=== PATIENT | female | born 1940 | race Caucasian/White ===

== ENCOUNTER 2017-08-05 12:34 | Inpatient (IN) ==
--- NOTE | 2017-08-05 15:56 | Internal Med History&Physical ---
Date of Encounter: 08/05/17 Time of Encounter: 15:50 Assessment and Plan (1) Fracture of unspecified part of neck of right femur, initial encounter for closed fracture Current visit: Yes Status: Acute Orthopedic Surgery has been consulted. Recommendations are appreciated. Tylenol prn, Toradol prn breakthrough. Labs today were wnl. Will order CBC, BMP for tomorrow AM. Regular diet NPO at midnight. Lovenox for DVT prophylaxis (2) Elevated BP without diagnosis of hypertension Current visit: Yes Status: Acute Likely secondary to pain. Will monitor. Internal Medicine - H&P: HPI Chief complaint: Femur fractire Admitted From: Home Plans for Post Hospital Care: [facility] History of present illness: Ms. Villeda is a 77 year old female with no significant past medical history presented to [facility] after right hip pain. Patient slipped on ice and was not able to put weight on it. Pain was sharp, 8/10 in severity and worse with any weight-bearing. She denies numbness, tingling, or muscle weakness. Patient had CT scan of right hip which showed a commuted impacted slightly displaced femoral neck fracture. She did not have any head trauma. No other injuries. Workup at [facility] included: CBC, BMP, PT/ INR, UA, XR chest, EKG, all of which were unremarkable. BP ranged from 144-169/ 76-85, HR 70-77. All Systems PM: A 10-system review of systems was performed and is negative for pertinent findings except as documented above in the HPI. - Constitutional Constitutional: falls, no anorexia, no chills, no fatigue, no fever(s), no night sweats - EENT Eyes: no blurry vision, no change in vision Ears: no ear pain, no tinnitus Nose, mouth and throat: no epistaxis, no facial pain - Cardiovascular Cardiovascular ROS IM: no chest pain, no claudication, no diaphoresis - Respiratory Respiratory: no cough, no dyspnea, no wheezing, no excessive phlegm production - Gastrointestinal Gastrointestinal: no abdominal pain, no diarrhea, no hematemesis, no hematochezia, no melena, no nausea, no vomiting - Genitourinary Genitourinary: no change in urinary stream, no dysuria, no flank pain, no hematuria - Musculoskeletal Musculoskeletal ROS IM: no numbness, no tingling Additional comments: Right hip pain - Neurological Neurological ROS: no confusion, no convulsions, no focal weakness, no numbness, no tingling, no tremor(s) - Hematologic/Lymphatic Hematologic/Lymphatic: no easy bruising - Constitutional Vitals: Temp Pulse Resp BP Pulse Ox 98.2 F 74 18 132/77 94 08/05/17 14:53 08/05/17 14:53 08/05/17 14:53 08/05/17 14:53 08/05/17 14:53 - Head Head exam: Present: atraumatic, normocephalic - Eye Eye exam: Present: PERRL, conjuntiva pink, sclera anicteric Pupils: Present: PERRL - Neck Neck exam general surgery: Present: supple, trachea midline. Absent: lymphadenopathy - Respiratory Respiratory exam: Present: CTAB. Absent: accessory muscle use, rales, rhonchi, wheezes - Cardiovascular Cardiovascular exam: Present: RRR, +S1, +S2. Absent: diastolic murmur, gallop, rubs, systolic murmur - GI/Abdominal GI/Abdominal exam: Present: normal bowel sounds, soft, no peritoneal signs. Absent: distended, tenderness - Extremities Exam Extremities exam: Present: warm, radial pulses palpable and symmetrical. Absent : calf tenderness, cyanotic, pedal edema Additional comments: Right hip with lateral tenderness, no bruising, no hematomy, no gross deformity. - Neurological Exam Neurological exam: Present: CN II-XII intact, oriented X3, no focal deficits. Absent: pronater drift, facial droop, speech deficit - Skin Skin exam: Present: dry, intact Internal Med - H&P Results - Labs Labs: See HPI; CBC, BMP, UA, EKG are unremarkable.
[2017-08-05] MEDS ORDERED: Acetaminophen 325 MG TABLET PO PRN (16:28)
[2017-08-05] MEDS ORDERED: Naloxone 0.4 MG/ML INJ IVP PRN (16:28)
[2017-08-05] MEDS ORDERED: Ondansetron 4 MG/2 ML VIAL IVP PRN (16:28)
[2017-08-05] MEDS: 0.9 % Sodium Chloride 1,000 ML IVC SCH (17:00)
[2017-08-05] MEDS: Ketorolac 30 MG/ML VIAL IVP PRN (17:01)
[2017-08-06 04:40] LABS: Basophils % 0.4 %; Eosinophils # 0.1 K/mcL (0.0-0.6); Hematocrit 39.8 % (35.3-44.9); Hemoglobin 13.1 g/dL (11.5-15.4); Immature Granulocytes % 0.1 % (0-4); Lymphocytes # 2.2 K/mcL (0.6-4.6); Lymphocytes % 26.9 %; Mean Corpuscular HGB Conc 32.9 g/dL (31.6-35.5); Mean Corpuscular Hemoglobin 30.3 pg (28.0-33.3); Mean Corpuscular Volume 92.1 fL (83.0-100.0); Mean Platelet Volume 8.9 fL (9.4-12.4); Monocytes # 0.7 K/mcL (0.0-1.3); Monocytes % 8.9 %; Neutrophils # 5.1 K/mcL (1.6-8.9); Platelet Count 185 K/mcL (140-400); Red Blood Count 4.32 M/mcL (3.82-4.97); Red Cell Distribution Width 13.2 % (11.5-14.5); Segmented Neutrophils % 62.7 %
[2017-08-06 04:51] LABS: BUN/Creatinine Ratio 30 (6-26); Blood Urea Nitrogen 22 mg/dL (7-20); Calcium 8.4 mg/dL (8.6-10.8); Carbon Dioxide 25 mEq/L (19-29); Chloride 111 mEq/L (98-109); Glucose 94 mg/dL (70-99); Osmolality,Calculated 297 (280-300); Potassium 3.9 mEq/L (3.5-4.5); Sodium 142 mEq/L (136-145); eGFR For African Americans > 60 (> 60); eGFR For Non-African Americans > 60 (> 60)
[2017-08-06] MEDS ORDERED: *HR* Enoxaparin 40 MG/0.4 ML SYRINGE SQ SCH (06:00)
[2017-08-06] MEDS: *HR* Heparin 5,000 UNIT/ML VIAL SQ SCH ×2 (07:04→16:27)
[2017-08-06] MEDS: Ketorolac 30 MG/ML VIAL IVP PRN ×2 (07:44→14:19)
--- NOTE | 2017-08-06 08:36 | Orthopedic Consult Note ---
Date of Encounter: 08/06/17 Time of Encounter: 08:33 Assessment and Plan (1) Fracture of unspecified part of neck of right femur, initial encounter for closed fracture Current Visit: Yes Status: Acute I did discuss the diagnosis in detail the patient. She has a right proximal femur fracture as described above. Treatment options were discussed and my recommendations for internal fixation in order to stabilize the hip to reduce the risk of displacement as well as to control pain and help facilitate nursing care. The risks discussed included but were not limited to stiffness, bleeding , infection, blood clots, damage to neurovascular structures, tendons, ligaments , and bone. Also discussed was the risk of continued symptoms and possible need for further procedures. I did discuss the anesthesia risks including stroke, heart attack, and . I did discuss the reasonable, foreseeable postoperative course with the patient. She did wish to proceed and consent was obtained. We will plan on surgery this afternoon. History of Present Illness HPI: Ms. Villeda is a 77 year old female admitted to the hospitalist as a transfer from [place]. She is having right hip pain after a fall at [employer] and was demonstrated to have a right proximal femur fracture. After the transfer orthopedics consulted to evaluate the patient. On my evaluation she complains of isolated pain about the right hip and groin region. She denies any headaches , neck pain, chest pain, abdominal pain, bilateral upper extremity pain, and left lower extremity pain. Pain is worse with movement and better with rest. No numbness, tingling, or any other associated signs or symptoms or modifying factors. At baseline she is an unassisted community ambulator. Past Med Surg Social Fam HX - Past Medical History Psychiatric history: no psych history - Social History Smoking Status: Never smoker Alcohol use: occasionally Drug use: none - Family History Father Hx Family Cardiac Disorders: Yes (CHF) Medications and Allergies Multivitamin,Therapeutic [Thera-Tabs] 1 each PO DAILY 08/05/17 [History] 3 Allergy/AdvReac Type Severity Reaction Status Date / Time No Known Allergies Allergy Verified 08/05/17 16:52 All Systems Reviewed: A 10-system review of systems was performed and is negative for pertinent findings except as documented above in the HPI. Physical Exam - Constitutional Vitals: Temp Pulse Resp BP Pulse Ox 98 F 76 18 137/68 96 08/06/17 06:32 08/06/17 06:32 08/06/17 06:32 08/06/17 06:32 08/06/17 06:32 Constitutional -Vitals reviewed -The patient is well developed and well nourished. -Mood is pleasant. -The patient is well groomed. Psychiatric -The patient is fully alert and oriented x 3. Respiratory: -Respiratory effort normal Abdomen: -Soft abdomen -Non tender -Non distended: Left upper extremity: -No deformities. The overlying skin is intact. No obvious signs of acute trauma. -No tenderness to palpation throughout. -No significant pain with passive motion of the shoulder, elbow, wrist, and fingers within the limits of the bed. -Able to make an "OK" sign, cross the index and long fingers, and extend the thumb. -Sensation grossly intact to light touch throughout the median, radial, and ulnar distributions. -Radial pulse is present; Fingers have good capillary refill. Right upper extremity: -No deformities. The overlying skin is intact. No obvious signs of acute trauma. -No tenderness to palpation throughout. -No significant pain with passive motion of the shoulder, elbow, wrist, and fingers within the limits of the bed. -Able to make an "OK" sign, cross the index and long fingers, and extend the thumb. -Sensation grossly intact to light touch throughout the median, radial, and ulnar distributions. -Radial pulse is present; Fingers have good capillary refill. Left lower extremity: -No deformities. The overlying skin is intact. No obvious signs of acute trauma. -No tenderness to palpation throughout. -No pain with passive motion of the hip, knee, ankle, and toes within the limits of the bed. -No pain with axial loading of the thigh. -Able to dorsiflex and plantarflex the ankle and toes. -Sensation is grossly intact to light touch throughout the sural, saphenous, superficial peroneal, and deep peroneal distributions. -Toes have good capillary refill. Right lower extremity: -The extremity is shortened and externally rotated. The overlying skin is intact. -There is tenderness in the groin region as well as the proximal lateral thigh. -I did not range the hip due to the known fracture. -No tenderness along the distal thigh, leg, ankle, foot, or toes. -Able to dorsiflex and plantarflex the ankle and toes. -Sensation is grossly intact to light touch throughout the sural, saphenous, superficial peroneal, and deep peroneal distributions. -Toes have good capillary refill. Diagnostic Imaging: I did personally review and interpret x-rays of the right hip as well as a CT scan which shows a basicervical femoral neck fracture extending into the subcapital region laterally. Results - Labs Result Diagrams: 08/06/17 03:52 08/06/17 03:52 Labs: Abnormal lab results MPV 8.9 fL (9.4-12.4) L 08/06/17 03:52 Chloride 111 mEq/L (98-109) H 08/06/17 03:52 BUN 22 mg/dL (7-20) H 08/06/17 03:52 BUN/Creatinine Ratio 30 (6-26) H 08/06/17 03:52 Calcium 8.4 mg/dL (8.6-10.8) L 08/06/17 03:52 H & H 08/06/17 Range/Units 03:52 Hgb 13.1 (11.5-15.4) g/dL Hct 39.8 (35.3-44.9) % All other labs normal. Consult Discharge Plan - Plan Referrals: Deion Mason MD [Primary Care Provider] -
[2017-08-06] MEDS: 0.9 % Sodium Chloride 1,000 ML IVC SCH (14:19)
[2017-08-06 15:06] LABS: INR 1.1; Prothrombin Time 11.3 Seconds (9.4-12.1)
--- NOTE | 2017-08-06 16:54 | Anesthesia Evaluation PreOp ---
Date of Encounter: 08/06/17 Time of Encounter: 16:52 - Past History Planned Operation: Right Hip TFN Cardiac History: Denies any Significant Hx Pulmonary History: Denies Any Significant HX BOX PRESS OPERATOR History: Denies Any Significant HX Other Medical History: Denies Any Significant HX Anesthesia History: No Prior Anesthetic Complications, Past Anesthesia ( Bunionectomies, CTR, mastoidectomy) : No Alcohol Use: occasionally Drug use: none Medications and Allergies Multivitamin,Therapeutic [Thera-Tabs] 1 each PO DAILY 08/05/17 [History] 3 Allergy/AdvReac Type Severity Reaction Status Date / Time No Known Allergies Allergy Verified 08/05/17 16:52 - Meds/Allergy Pre-op Review Medications Reviewed: Yes Allergies Reviewed: Yes Beta Blockers on Current Med List: No Anesthesia Results - Labs 08/06/17 03:52 08/06/17 03:52 Anesthesia Exam O2 Sat Height 1.65 m Weight 61 kg Weight 61.008 kg O2 Sat by Pulse Oximetry 97 O2 Sat by Pulse Oximetry 98 O2 Sat by Pulse Oximetry 96 O2 Sat by Pulse Oximetry 95 O2 Sat by Pulse Oximetry 95 O2 Sat by Pulse Oximetry 95 Vital Signs Temp Pulse Resp BP Pulse Ox 98.2 F 74 18 132/77 94 08/05/17 14:53 08/05/17 14:53 08/05/17 14:53 08/05/17 14:53 08/05/17 14:53 Vital Signs/O2 Sat, Most Current Temp Pulse Resp BP Pulse Ox 97.9 F 76 18 143/75 97 08/06/17 15:24 08/06/17 15:24 08/06/17 15:24 08/06/17 15:24 08/06/17 15:24 Height: 5'5'' Weight: 134# NPO (# of Hours): > 8 hrs Pain Scale: 0 Pain Scale Used: Numeric (1 - 10) - HEENT Pupil (Motor): Pupils equal, EOMI Mallampati: II Teeth: Missing Denture Type: Upper: Complete Oral Opening: Greater than 3 - BOX PRESS OPERATOR LOC: Oriented BOX PRESS OPERATOR Motor: Normal RUE, Normal LUE, Normal RLE, Normal LLE, Normal Face BOX PRESS OPERATOR Sensory: Normal: RUE, LUE, RLE, LLE, Face - Cardiac Rhythm: Regular Murmur: None JVD: No Carotid Bruit: No - Pulmonary Breath Sounds: bilateral Clear Respiratory Effort: Symmetrical Anesthesia Assess/Plan ASA Score: 1 Modified [place] Scale for Level of Consciousness: Cooperative, oriented, and tranquil Anesthetic Plan: General Autologous Blood: Yes Monitoring Plan: Standard Monitors Recovery Plan: PACU
[2017-08-06] MEDS ORDERED: *HR* Midazolam HCl 2 MG/2 ML VIAL ONE (17:03)
[2017-08-06] MEDS ORDERED: *HR* Propofol 200 MG/20 ML VIAL IVP ONE (17:03)
[2017-08-06] MEDS ORDERED: *HR* FentaNYL (PF) 100 MCG/2 ML VIAL ONE ×2 (17:03→18:01)
[2017-08-06] MEDS ORDERED: Neostigmine Methylsulfate 3 MG/3 ML SYRINGE ONE (17:09)
[2017-08-06] MEDS ORDERED: Dexamethasone 4 MG/ML VIAL ONE (17:09)
[2017-08-06] MEDS ORDERED: Ondansetron 4 MG/2 ML VIAL ONE (17:09)
[2017-08-06] MEDS ORDERED: Lidocaine -MPF 2% 2 ML VIAL ONE (17:09)
[2017-08-06] MEDS ORDERED: EPHEDrine 50 MG/ML VIAL ONE (17:42)
[2017-08-06] MEDS ORDERED: *HR* HYDROmorphone (PF) 1 MG/ML SYRINGE IVP PRN (18:04)
[2017-08-06] MEDS ORDERED: Naloxone 0.4 MG/ML INJ IVP PRN (18:48)
--- NOTE | 2017-08-06 18:58 | Orthopedic Operative Note ---
Date of procedure: 08/06/17 Procedure: OPERATIVE REPORT DATE OF PROCEDURE: 08/06/2017 SURGEON: Jeremie Lopez MD MAINTENANCE CRAFTSMAN(S): There are no assistants PREOPERATIVE DIAGNOSIS: Right basicervical femoral neck fracture POSTOPERATIVE DIAGNOSIS: Right basicervical femoral neck fracture PROCEDURE: Reduction and internal fixation of the right basicervical femoral neck fracture ANESTHESIA: General anesthesia PREOPERATIVE ANTIBIOTICS: 2 g of Ancef ESTIMATED BLOOD LOSS: 50 milliliters IMPLANTS: Escobar Gamma 3 170 mm by 10 mm by 130 degree nail PREOPERATIVE NOTE AND INDICATIONS: This patient is a 77-year-old female with a right hip fracture. Treatment options were discussed and the recommendation was for the above procedure in order to stabilize the hip and reduce the risk for displacement. The surgical plan was discussed with the patient. The risks, benefits, alternatives, and potential complications of this procedure were discussed with the patient including injury to veins, arteries, nerves, tendons, ligaments, and bone. Also discussed were the risks of infection, bleeding, pain, blood clots, the possible need for a blood transfusion, the possible need for further procedures, heart attack, stroke, and . Additional risks include malunion , nonunion, hardware failure and the need to revise to prosthetic replacement. All of this was explained in simple terms, and the patient verbalized understanding and wished to proceed. Consent was given to proceed with surgery. PROCEDURE: The patient was seen in the preoperative holding area where the identify and the consent were confirmed. The right the was marked. Final questions were answered. The patient was brought back to the operating room. A huddle was performed with the patient and all vital surgical team members confirming patient identity, the correct procedure, and the correct operative site. General anesthesia was administered. The patient was placed on the traction table and the right lower extremity was placed in the traction boot without traction. The left lower extremity was flexed and abducted out of the way. X- rays confirmed good position of the fracture. The right thigh was prepped and draped in the usual sterile fashion. A surgical time out was performed immediately preceding the incision with all personnel in the operating room to confirm patient identity, the correct operative site and extremity, correct radiographic studies, availability of appropriate surgical equipment, and agreement on the planned procedure. A small longitudinal incision was made through the skin, subcutaneous tissue, and the fascia. The pin was driven into the proximal femur and opened. A ball- tipped guidewire was placed and reaming started at 9.5 mm and went up in half millimeter increments to 11.5. There is good chatter. The definitive nail was placed and the triple sleeve placed on the skin and a second incision was made. This went through the fascia. A guidewire was placed into the femoral head, measured, and drilled to 95 mm. The definitive lag screw was placed in good position. This was locked in position after compressing. A final distal incision was made and an interlocking screw placed. The wounds were copiously irrigated and the fascia was closed Vicryl stitches. The skin was closed with 3 -0 Vicryl stitches and a zip tie closure followed by honeycomb dressings. The patient was taken off the traction table and good condition. The instrument, sponge, and needle counts were correct after wound closure. POST OPERATIVE PLAN: Weight Bearing: Weightbearing as tolerated on the bilateral lower extremity. DVT Prophylaxis: Ambulation Activity: Avoid aggressive activities with the right upper extremity. Wound Care: Keep the dressing clean, dry, and intact. Pain Control: Per the hospitalist Follow Up: 2 weeks
--- NOTE | 2017-08-06 19:27 | Anesthesia Evaluation Post Op ---
Date of Encounter: 08/06/17 Time of Encounter: 19:25 - Vital Signs Vital Signs: Vital Signs 08/06/17 15:24 08/06/17 18:45 08/06/17 18:55 Temperature 97.9 F 97.4 F L Pulse Rate 76 84 73 Respiratory Rate 18 18 18 Blood Pressure 143/75 127/78 142/78 O2 Sat by Pulse Oximetry 97 100 100 08/06/17 19:05 08/06/17 19:15 Temperature 97.4 F L 98.1 F Pulse Rate 79 71 Respiratory Rate 18 18 Blood Pressure 155/84 153/73 O2 Sat by Pulse Oximetry 100 94 - Lungs Lungs: Clear Ascult./Percussion - Airway Airway: Non-obstructed - Cardiovascular Regular Rate - Mental Status Mental Status: Alert & Oriented, Answers Appropriately - Pain Pain Scale: 2 - Nausea Vomiting Nausea Vomiting: Not Present - Hydration Hydration: Tolerates oral liquids, Ice chips - Discharge PostOp Status: Transfer Patient to floor (pt. is appropriate to discharge to floor.)
--- NOTE | 2017-08-07 02:50 | Internal Med Progress Note ---
Date of Encounter: 08/06/17 Time of Encounter: 13:28 - Assessment and plan (1) Fracture of unspecified part of neck of right femur, initial encounter for closed fracture Current Visit: Yes Status: Acute Assessment and plan: Continue pain management. Ortho consulted, patient scheduled for surgery today. (2) Elevated BP without diagnosis of hypertension Current Visit: Yes Status: Acute Assessment and plan: Improved after pain control. - Subjective Interval history: No acute events. Pain manageable with morphine. Denies any numbness/tingling, edema. - Constitutional Vitals: Temp Pulse Resp BP Pulse Ox 98.0 F 73 16 105/64 93 08/07/17 00:33 08/07/17 00:33 08/07/17 00:33 08/07/17 00:33 08/07/17 00:33 General appearance: Present: A&O X 3, no acute distress - Respiratory Respiratory exam: Present: CTAB. Absent: accessory muscle use, rales, rhonchi, wheezes - Cardiovascular Cardiovascular exam: Present: RRR, +S1, +S2. Absent: diastolic murmur, gallop, rubs, systolic murmur Internal Medicine: Result - Labs CBC & Chem 7: 08/06/17 03:52 08/06/17 03:52 Labs: Short CBC 08/06/17 Range/Units 03:52 WBC 8.2 (4.3-11.1) K/mcL Hgb 13.1 (11.5-15.4) g/dL Hct 39.8 (35.3-44.9) % Plt Count 185 (140-400) K/mcL Neutrophils # 5.1 (1.6-8.9) K/mcL BMP 08/06/17 03:52 Sodium 142 Potassium 3.9 Chloride 111 H Carbon Dioxide 25 BUN 22 H Creatinine 0.73 Glucose 94 Calcium 8.4 L - ABG Interpretation ABG results: PT/INR, D-dimer PT 11.3 Seconds (9.4-12.1) 08/06/17 14:41 - Impressions Impressions Fluoroscopy 08/06/17 00:00 IMPRESSION: Intraprocedural fluoroscopic spot images as above. See separate procedure report for more information. D/ / Pasha Hernandez MD / Pasha Hernandez MD Interpreting Provider: Pasha Hernandez MD Hip X-Ray 08/06/17 07:18 IMPRESSION: Mildly displaced right intertrochanteric hip fracture. Osteopenia. D/ / 08/06/2017 08:12:02 Jim Abreu MD / [facility] Interpreting Provider: Jim Abreu MD - VTE Documentation of Mechanical Device: Intermittent pneumatic compression device Consult Discharge Plan - Plan Referrals: Deion Mason MD [Primary Care Provider] -
[2017-08-07] MEDS: CeFAZolin Premix DUPLEX 2,000 MG/50 ML BAG IVPB SCH ×2 (04:56→08:17)
--- NOTE | 2017-08-07 06:23 | Orthopedics Progress Note ---
Date of Encounter: 08/07/17 Time of Encounter: 06:22 Subjective Interval history: Patient was seen this morning doing well without complaints. Afebrile vital signs stable. Operative extremity: Neurovascularly intact Dressing clean dry and intact Calves nontender Assessment and plan: Continue with postoperative care Objective Vital signs: Vital Signs Temp Pulse Resp BP Pulse Ox 08/07/17 03:52 97.8 F 79 18 122/69 93 08/07/17 00:33 98.0 F 73 16 105/64 93 08/06/17 21:00 97.6 F 73 14 114/69 92 08/06/17 20:34 97.5 F L 68 17 112/64 94 08/06/17 20:00 97.6 F 66 14 133/72 90 08/06/17 19:45 97.6 F 74 14 130/78 94 08/06/17 19:15 98.1 F 71 18 153/73 94 08/06/17 19:05 97.4 F L 79 18 155/84 100 08/06/17 18:55 73 18 142/78 100 08/06/17 18:45 97.4 F L 84 18 127/78 100 08/06/17 15:24 97.9 F 76 18 143/75 97 08/06/17 10:04 98.3 F 81 16 134/75 98 08/06/17 06:32 98 F 76 18 137/68 96 Intake and Output 08/06/17 08/06/17 08/07/17 15:59 23:59 07:59 Intake Total 1000 / 1000 0 / 0 Output Total 700 / 700 250 / 250 Balance 300 / 300 -250 / -250 Intake: IV Fluids 1000 / 1000 0.9 % Sodium Chloride 1,000 ML 1000 / 1000 @ 50 mls/hr IVC .Q20H ALIZE Rx#: [id number] Oral 0 / 0 0 / 0 Output: Estimated Blood Loss 50 / 50 Catheter 700 / 700 200 / 200 - Labs CBC & BMP: 08/06/17 03:52 08/06/17 03:52 Labs: Abnormal lab results MPV 8.9 fL (9.4-12.4) L 08/06/17 03:52 Chloride 111 mEq/L (98-109) H 08/06/17 03:52 BUN 22 mg/dL (7-20) H 08/06/17 03:52 BUN/Creatinine Ratio 30 (6-26) H 08/06/17 03:52 Calcium 8.4 mg/dL (8.6-10.8) L 08/06/17 03:52 - VTE Documentation of Mechanical Device: Intermittent pneumatic compression device Consult Discharge Plan - Plan Referrals: Deion Mason MD [Primary Care Provider] -
[2017-08-07 06:58] LABS: Basophils % 0.1 %; Hematocrit 35.5 % (35.3-44.9); Hemoglobin 11.7 g/dL (11.5-15.4); Immature Granulocytes % 0.5 % (0-4); Lymphocytes # 0.7 K/mcL (0.6-4.6); Mean Corpuscular Hemoglobin 30.8 pg (28.0-33.3); Mean Corpuscular Volume 93.4 fL (83.0-100.0); Monocytes # 0.6 K/mcL (0.0-1.3); Monocytes % 6.8 %; Neutrophils # 7.5 K/mcL (1.6-8.9); Platelet Count 154 K/mcL (140-400); Red Cell Distribution Width 13.2 % (11.5-14.5); Segmented Neutrophils % 84.6 %
[2017-08-07 07:06] LABS: BUN/Creatinine Ratio 32 (6-26); Blood Urea Nitrogen 24 mg/dL (7-20); Calcium 7.9 mg/dL (8.6-10.8); Carbon Dioxide 23 mEq/L (19-29); Chloride 108 mEq/L (98-109); Glucose 189 mg/dL (70-99); Osmolality,Calculated 299 (280-300); Potassium 4.2 mEq/L (3.5-4.5); Sodium 140 mEq/L (136-145); eGFR For African Americans > 60 (> 60); eGFR For Non-African Americans > 60 (> 60)
--- NOTE | 2017-08-07 09:58 | Internal Med Progress Note ---
Date of Encounter: 08/07/17 Time of Encounter: 09:57 - Assessment and plan (1) Fracture of unspecified part of neck of right femur, initial encounter for closed fracture Current Visit: Yes Status: Acute Assessment and plan: POD 1 Continue pain management and post-op care (2) Elevated BP without diagnosis of hypertension Current Visit: Yes Status: Resolved Assessment and plan: Improved after pain control. - Subjective Interval history: Seen and evaluated at bedside No new complains Pain free - Constitutional Vitals: Temp Pulse Resp BP Pulse Ox 98.6 F 76 15 123/77 93 08/07/17 06:54 08/07/17 06:54 08/07/17 06:54 08/07/17 06:54 08/07/17 06:54 General appearance: Present: A&O X 3, pleasant, no acute distress - Head Head exam: Present: atraumatic, normocephalic - Eye Eye exam: Present: PERRL, conjuntiva pink, sclera anicteric Pupils: Present: PERRL - Neck Neck exam general surgery: Present: supple, trachea midline. Absent: lymphadenopathy - Respiratory Respiratory exam: Present: CTAB. Absent: accessory muscle use, rales, rhonchi, wheezes - Cardiovascular Cardiovascular exam: Present: RRR, +S1, +S2. Absent: diastolic murmur, gallop, rubs, systolic murmur - GI/Abdominal GI/Abdominal exam: Present: normal bowel sounds, soft, no peritoneal signs. Absent: distended, tenderness - Extremities Exam Extremities exam: Present: warm, radial pulses palpable and symmetrical. Absent : calf tenderness, cyanotic, pedal edema Additional comments: Wound clean and dry R limb neurovascularl intact - Neurological Exam Neurological exam: Present: alert, CN II-XII intact, oriented X3, no focal deficits. Absent: pronater drift, facial droop, speech deficit - Skin Skin exam: Present: dry, intact Internal Medicine: Result - Labs CBC & Chem 7: 08/07/17 06:15 08/07/17 06:15 Labs: Short CBC 08/07/17 Range/Units 06:15 WBC 8.9 (4.3-11.1) K/mcL Hgb 11.7 (11.5-15.4) g/dL Hct 35.5 (35.3-44.9) % Plt Count 154 (140-400) K/mcL Neutrophils # 7.5 (1.6-8.9) K/mcL BMP 08/07/17 06:15 Sodium 140 Potassium 4.2 Chloride 108 Carbon Dioxide 23 BUN 24 H Creatinine 0.76 Glucose 189 H Calcium 7.9 L - ABG Interpretation ABG results: PT/INR, D-dimer PT 11.3 Seconds (9.4-12.1) 08/06/17 14:41 - Impressions Impressions Fluoroscopy 08/06/17 00:00 IMPRESSION: Intraprocedural fluoroscopic spot images as above. See separate procedure report for more information. D/ / Pasha Hernandez MD / Pasha Hernandez MD Interpreting Provider: Pasha Hernandez MD Hip X-Ray 08/06/17 07:18 IMPRESSION: Mildly displaced right intertrochanteric hip fracture. Osteopenia. D/ / 08/06/2017 08:12:02 Jim Abreu MD / [facility] Interpreting Provider: Jim Abreu MD - [facility] Documentation of Mechanical Device: Intermittent pneumatic compression device Consult Discharge Plan - Plan Referrals: Deion Mason MD [Primary Care Provider] -
[2017-08-07] MEDS: Aspirin Enteric Coated 325 MG Tablet PO SCH ×2 (17:15→17:19)
[2017-08-08] MEDS: *HR* Morphine 2 MG/ML SYRINGE IVP PRN ×2 (00:17→05:54)
--- NOTE | 2017-08-08 07:28 | Orthopedics Progress Note ---
Date of Encounter: 08/08/17 Time of Encounter: 07:26 - Assessment and Plan (1) Fracture of unspecified part of neck of right femur, initial encounter for closed fracture Current Visit: Yes Status: Acute Subjective Interval history: S: Doing very well Pain control to the right hip Progressing with therapy O: Afebrile and vital signs are stable Right hip incisions are clean, dry, and intact with the honeycomb dressings intact. I can gently passively range the hip without significant pain. She can dorsiflex and plantar flex ankle and toes. The foot is sensate and well-perfused. A: Postoperative day 2 after internal fixation of the right hip P: Weightbearing as tolerated on the bilateral lower extremity. Aspirin for DVT prophylaxis Orthopedic stable for discharge Follow-up in the office 2 weeks after surgery for staple removal and x-rays. Objective Vital signs: Vital Signs Temp Pulse Resp BP Pulse Ox 08/08/17 06:27 99.0 F 87 18 136/73 93 08/08/17 04:23 98.2 F 75 18 115/73 91 08/07/17 23:20 98.6 F 84 17 109/61 92 08/07/17 18:25 97.9 F 87 18 106/70 94 08/07/17 11:19 98.1 F 72 16 118/69 96 08/07/17 11:04 72 16 118/69 96 Intake and Output 08/07/17 08/07/17 08/08/17 15:59 23:59 07:59 Intake Total 560 / 560 960 / 960 Balance 560 / 560 960 / 960 Intake: Oral 560 / 560 960 / 960 Other: Meal Lunch Dinner Percent of Meal Consumed 90% 95% # Voids 1 1 - Labs CBC & BMP: 08/07/17 06:15 08/07/17 06:15 Labs: Abnormal lab results RBC 3.80 M/mcL (3.82-4.97) L 08/07/17 06:15 MPV 9.0 fL (9.4-12.4) L 08/07/17 06:15 BUN 24 mg/dL (7-20) H 08/07/17 06:15 BUN/Creatinine Ratio 32 (6-26) H 08/07/17 06:15 Glucose 189 mg/dL (70-99) H 08/07/17 06:15 Calcium 7.9 mg/dL (8.6-10.8) L 08/07/17 06:15 - VTE Documentation of Mechanical Device: Intermittent pneumatic compression device Consult Discharge Plan - Plan Additional Instructions: ALF DISCHARGE INSTRUCTIONS Dr. Lopez PROCEDURE PERFORMED Reduction and fixation of right hip. Incision care -Daily dressing changes to the right hip with dry gauze and either paper tape or medipore tape. -Avoid soaking wound in water (no hot tubs, bathtubs, swimming pools). -May shower after 2 weeks from surgery date. Carefully wash incision with soap and water. Gently pat it dry. Don't rub the incision, or apply creams or lotions. Sit on a shower stool when showering to keep from falling. Weight bearing status -Weightbearing as tolerated to the bilateral lower extremities. Medications -Pain medication per the discharging medical doctor -Enteric coated aspirin 325 mg by mouth twice per day for 28 days from the date of the surgery. Other -Knee high PERRY hose 23 hours per day -Consult physical and occupational therapy for mobilization. -Up to chair with assistance at least twice per day. -Follow up with your primary care physician to discuss testing for bone mineral density. Follow-up with Dr. Lopez at the office 2 weeks from the surgery date for a post operative evaluation. Call the office at [phone] to schedule appointment. Referrals: Deion Mason MD [Primary Care Provider] -
[2017-08-08] MEDS: Aspirin Enteric Coated 325 MG Tablet PO SCH ×2 (08:58→20:19)
[2017-08-08] MEDS ORDERED: *HR* OxyCODONE/APAP 5/325 TABLET PO PRN (09:37)
--- NOTE | 2017-08-08 09:40 | Physician Discharge Referral ---
ExtendedCare Referral Info Transfer To: [facility] Provider in Charge: Bruna Knapp Provider in Charge after Transfer: PCP Institutional Level of Care: Skilled - Diagnosis (1) Fracture of unspecified part of neck of right femur, initial encounter for closed fracture Priority: Primary Status: Acute (2) Elevated BP without diagnosis of hypertension Status: Resolved Prognosis: Good Aware of Diagnosis: Patient Aware of Prognosis: Patient - Transfer Medications Prescriptions: OxyCODONE/APAP 5/325 [Percocet 5/325 MG] 1 each PO Q4HR PRN #20 tablet PRN Reason: Moderate-Severe Pain Home Medications: Multivitamin,Therapeutic [Thera-Tabs] 1 each PO DAILY 08/05/17 [History] Acetaminophen [Tylenol] 650 mg PO Q6HR PRN tablet 08/08/17 [Rx] Aspirin Enteric Coated [Aspirin EC] 325 mg PO BID tablet. 08/08/17 [Rx] OxyCODONE/APAP 5/325 [Percocet 5/325 MG] 1 each PO Q4HR PRN #20 tablet 08/08/17 [Rx] Allergies/Adverse Reactions: 3 Allergy/AdvReac Type Severity Reaction Status Date / Time No Known Allergies Allergy Verified 08/05/17 16:52 - Respiratory Orders Oxygen / L per min Smoking Cessation: Smoking cessation has been advised. For more information, call the [place] Tobacco Quit Line at 0-560-WRSW-NOW. - Advance Directives Code Status: Full Code - Mobility Orders Ambulate (per PT) - Diet Orders Regular CERTIFICATION: I certify that the transfer of the above named patient to an Extended Care Facility is necessary for the continuing treatment of the diagnosis listed. The above information is true and accurate reflection of patient's current condition. Confidential - Redisclosure prohibited without a patient's written consent.
--- NOTE | 2017-08-08 09:43 | Discharge Summary ---
Date of Encounter: 08/08/17 Time of Encounter: 09:40 - Discharge Diagnosis (1) Fracture of unspecified part of neck of right femur, initial encounter for closed fracture Priority: Primary Status: Acute (2) Elevated BP without diagnosis of hypertension Priority: Primary Status: Resolved - Discharge Medications Prescriptions: OxyCODONE/APAP 5/325 [Percocet 5/325 MG] 1 each PO Q4HR PRN #20 tablet PRN Reason: Moderate-Severe Pain Home Medications: Multivitamin,Therapeutic [Thera-Tabs] 1 each PO DAILY 08/05/17 [History] Acetaminophen [Tylenol] 650 mg PO Q6HR PRN tablet 08/08/17 [Rx] Aspirin Enteric Coated [Aspirin EC] 325 mg PO BID tablet. 08/08/17 [Rx] OxyCODONE/APAP 5/325 [Percocet 5/325 MG] 1 each PO Q4HR PRN #20 tablet 08/08/17 [Rx] Allergies/Adverse Reactions: 3 Allergy/AdvReac Type Severity Reaction Status Date / Time No Known Allergies Allergy Verified 08/05/17 16:52 Date of admission: 08/05/17 14:28 Primary care physician: Deion Mason Consults: 08/05/17 16:23 Consult to Occupational Therapy [CONS] Routine Comment: Evaluate, develop and implement POC Reason for Consult: Hip fracture Consult to Physical Therapy [CONS] Routine Comment: Evaluate, develop and implement POC Reason for Consult: Hip fracture 08/05/17 16:31 Consult to Orthopedic Surgery [CONS] Routine Consulting Provider: [facility] Reason for Consult: Femoral neck fracture Call Completed: Yes 08/06/17 18:48 Consult to Director Of Elementary Education [CONS] Routine Reason for SW Consult: post -op hip fracture Discharging clinician: Nathaniel Knapp Anticipated date of discharge: 08/08/17 - Patient Status Disposition: Transfer SNF Condition: Good Functional capacity at discharge: independent ambulation Overall status at discharge: patient is progressing back to baseline - Discharge Instructions Follow Up With: Deion Mason MD [Primary Care Provider] - Additional Instructions: [facility] DISCHARGE INSTRUCTIONS Dr. Lopez PROCEDURE PERFORMED Reduction and fixation of right hip. Incision care -Daily dressing changes to the right hip with dry gauze and either paper tape or medipore tape. -Avoid soaking wound in water (no hot tubs, bathtubs, swimming pools). -May shower after 2 weeks from surgery date. Carefully wash incision with soap and water. Gently pat it dry. Don't rub the incision, or apply creams or lotions. Sit on a shower stool when showering to keep from falling. Weight bearing status -Weightbearing as tolerated to the bilateral lower extremities. Medications -Pain medication per the discharging medical doctor -Enteric coated aspirin 325 mg by mouth twice per day for 28 days from the date of the surgery. Other -Knee high PERRY hose 23 hours per day -Consult physical and occupational therapy for mobilization. -Up to chair with assistance at least twice per day. -Follow up with your primary care physician to discuss testing for bone mineral density. Follow-up with Dr. Lopez at the office 2 weeks from the surgery date for a post operative evaluation. Call the office at [phone] to schedule appointment. - Diet and Activity Diet: regular diet Interval History: See below Hospital course: Ms. Villeda is a 77 year old female with no significant past medical history presented to [facility] after right hip pain. Patient slipped on ice and was not able to put weight on it. Pain was sharp, 8/10 in severity and worse with any weight-bearing. She denies numbness, tingling, or muscle weakness. Patient had CT scan of right hip which showed a commuted impacted slightly displaced femoral neck fracture. She did not have any head trauma. No other injuries. Workup at [facility] included: CBC, BMP, PT/ INR, UA, XR chest, EKG, all of which were unremarkable. BP ranged from 144-169/ 76-85, HR 70-77. She was admitted to [facility] and orthopedics team was consulted The patient had R hip ORIF, on 08/06/17 Today is POD 2 She has made significant clinical improvement Her blood pressure has been within normal range for her age She is recommended for in-patient rehab by [facility] Stable medically and by orthopedics to be discharged to facility Plans discussed with patient , verbalized understanding Continue ASA BID for DVT prophylaxis and pain control - Time Spent with Patient Total time spent providing and/or coordinating discharge services: Greater than 30 minutes (45 minutes spent on patient encounter, med rec , prescription and documentation) - Constitutional Vitals: Temp Pulse Resp BP Pulse Ox 99.0 F 87 18 136/73 93 08/08/17 06:27 08/08/17 06:27 08/08/17 06:27 08/08/17 06:27 08/08/17 06:27 General appearance: Present: A&O X 3, pleasant, no acute distress - Head Head exam: Present: atraumatic, normocephalic - Eye Eye exam: Present: PERRL, conjuntiva pink, sclera anicteric Pupils: Present: PERRL - Neck Neck exam general surgery: Present: supple, trachea midline. Absent: lymphadenopathy - Respiratory Respiratory exam: Present: CTAB. Absent: accessory muscle use, rales, rhonchi, wheezes - Cardiovascular Cardiovascular exam: Present: RRR, +S1, +S2. Absent: diastolic murmur, gallop, rubs, systolic murmur - GI/Abdominal GI/Abdominal exam: Present: normal bowel sounds, soft, no peritoneal signs. Absent: distended, tenderness - Extremities Exam Extremities exam: Present: warm, radial pulses palpable and symmetrical. Absent : calf tenderness, cyanotic, pedal edema Additional comments: R hip dressing clean and dry, pulses in distal extremity and foot present - Neurological Exam Neurological exam: Present: alert, normal gait, oriented X3, no focal deficits. Absent: facial droop - Skin Skin exam: Present: dry, intact - VTE Documentation of Mechanical Device: Intermittent pneumatic compression device
[2017-08-08] MEDS: Sennosides/Docusate Sodium TABLET PO SCH (20:19)
[2017-08-09 07:00] VITALS: BP 121/71
[2017-08-09] MEDS: Sennosides/Docusate Sodium TABLET PO SCH (07:25)
[2017-08-09] MEDS: Aspirin Enteric Coated 325 MG Tablet PO SCH (07:28)
--- NOTE | 2017-08-09 08:49 | Internal Med Progress Note ---
Date of Encounter: 08/09/17 Time of Encounter: 08:30 - Assessment and plan (1) Fracture of unspecified part of neck of right femur, initial encounter for closed fracture Current Visit: Yes Status: Acute Assessment and plan: POD 3 Continue pain management and post-op care (2) Elevated BP without diagnosis of hypertension Current Visit: Yes Status: Resolved - Subjective Interval history: Seen and evaluated at bedside No new complains Pain free Patient is medically stable to be discharged and has no active medical diagnosis - Constitutional Vitals: Temp Pulse Resp BP Pulse Ox 98.3 F 81 15 121/71 95 08/09/17 06:58 08/09/17 06:58 08/09/17 06:58 08/09/17 06:58 08/09/17 06:58 General appearance: Present: A&O X 3, pleasant, no acute distress - Head Head exam: Present: atraumatic, normocephalic - Eye Eye exam: Present: PERRL, conjuntiva pink, sclera anicteric Pupils: Present: PERRL - Neck Neck exam general surgery: Present: supple, trachea midline. Absent: lymphadenopathy - Respiratory Respiratory exam: Present: CTAB. Absent: accessory muscle use, rales, rhonchi, wheezes - Cardiovascular Cardiovascular exam: Present: RRR, +S1, +S2. Absent: diastolic murmur, gallop, rubs, systolic murmur - GI/Abdominal GI/Abdominal exam: Present: normal bowel sounds, soft, no peritoneal signs. Absent: distended, tenderness - Extremities Exam Extremities exam: Present: warm, radial pulses palpable and symmetrical. Absent : calf tenderness, cyanotic, pedal edema - Neurological Exam Neurological exam: Present: alert, CN II-XII intact, oriented X3, no focal deficits. Absent: pronater drift, facial droop, speech deficit - Skin Skin exam: Present: dry, intact Internal Medicine: Result - Labs CBC & Chem 7: 08/07/17 06:15 08/07/17 06:15 - ABG Interpretation ABG results: PT/INR, D-dimer PT 11.3 Seconds (9.4-12.1) 08/06/17 14:41 - VTE Documentation of Mechanical Device: Intermittent pneumatic compression device Consult Discharge Plan - Plan Additional Instructions: CARE HOME DISCHARGE INSTRUCTIONS Dr. Lopez PROCEDURE PERFORMED Reduction and fixation of right hip. Incision care -Daily dressing changes to the right hip with dry gauze and either paper tape or medipore tape. -Avoid soaking wound in water (no hot tubs, bathtubs, swimming pools). -May shower after 2 weeks from surgery date. Carefully wash incision with soap and water. Gently pat it dry. Don't rub the incision, or apply creams or lotions. Sit on a shower stool when showering to keep from falling. Weight bearing status -Weightbearing as tolerated to the bilateral lower extremities. Medications -Pain medication per the discharging medical doctor -Enteric coated aspirin 325 mg by mouth twice per day for 28 days from the date of the surgery. Other -Knee high PERRY hose 23 hours per day -Consult physical and occupational therapy for mobilization. -Up to chair with assistance at least twice per day. -Follow up with your primary care physician to discuss testing for bone mineral density. Follow-up with Dr. Lopez at the office 2 weeks from the surgery date for a post operative evaluation. Call the office at [phone] to schedule appointment. Referrals: Jeremie Lopez MD [Partnered Physician] - 08/28/17 9:10 am Deion Mason MD [Primary Care Provider] - Prescriptions: OxyCODONE/APAP 5/325 [Percocet 5/325 MG] 1 each PO Q4HR PRN #20 tablet PRN Reason: Moderate-Severe Pain
== END 2017-08-09 12:22 | DRG 482 ==
LOC: SUATTDRO 14:28 → 3NENU 14:28
PROVIDERS: ADMIT Internal Medicine; ATTEND Internal Medicine